=== PATIENT | male | born 1985 | race Caucasian/White ===

== ENCOUNTER 2020-08-19 03:39 | Outpatient (CLI) | payer BC, SELFPAY ==
[2020-08-19 20:40] LABS: SARS-CoV-2 RNA PCR Negative
== END 2020-08-19 03:40 | disposition home or self-care (01) ==
LOC: ANHCOVIDDT 03:40
PROVIDERS: PCP Internal Medicine; Visit Provider Otolaryngology
DX: Z01.812 Encounter for preprocedural laboratory examination (principal); Z11.59 Encounter for screening for other viral diseases
CPT/HCPCS: 87635; C9803; U0003

== ENCOUNTER 2020-08-22 01:22 | Day surgery (SDC) | payer BC, SELFPAY ==
[2020-08-12 14:15] VITALS: BMI 28.5
--- NOTE | 2020-08-21 06:12 | P.HP_ITS ---
History of Present Illness History of Present Illness Consent: Risks, benefits, and alternatives have been discussed and questions answered. Patient agrees to proceed with procedure. Chief complaint: nasal septal deviation Narrative: Clayton Goldman is a 34 year old male he has a deviated septum is unable to breathe out of the side of his nose has been unresponsive to medical management Review of Systems Review of Systems: All systems reviewed & are unremarkable except as noted in HPI and below Allergic/Immunologic: Comments: plan is a septoplasty [facility] Social History Social History Smoking status: Never smoker Alcohol intake: current Drinks per week: 2 Spiritual care concerns: No Meds Home Medications and Allergies Home Medications Medication Instructions Recorded Confirmed Type No Home Medications 07/31/20 08/12/20 History Allergies Allergy/AdvReac Type Severity Reaction Status Date / Time No Known Allergies Allergy Verified 08/12/20 14:15
[2020-08-22] VITALS (9 sets, daily range): BP systolic 115–133; BP diastolic 72–98; PULSE 66–94; RESP 13–16; TEMP 36.1–36.3; O2SAT 95–99
--- NOTE | 2020-08-22 06:20 | WPDHPUPDATE1 ---
History and Physical Update Update Date/Time: 08/22/20 06:20 History and Physical has been reviewed, including an updated exam of the patient. There are NO changes in the patient's condition. Risks, benefits, and alternatives have been discussed and questions answered. Patient agrees to proceed with procedure.
[2020-08-22] MEDS: LACTATED RINGERS 1,000 ML 30 ML IV CONT (07:57)
[2020-08-22] MEDS: ACETAMINOPHEN 500 MG TABLET 1000 MG PO (07:58)
--- NOTE | 2020-08-22 08:19 | P.PNAN_ITS ---
Anes - Initial Pre Proc Eval Procedure: Operation Date: 08/22/20 09:00 Proposed Procedures p Septoplasty - Lewis Vargas MD Date/Time: 08/22/20 08:19 Surgeon: Lewis Vargas MD Pre Op Diagnosis: nasal septal deviation Patient Data Age: 34 Gender: M Height: 6 ft Weight: 95.25 kg Allergies Allergy/AdvReac Type Severity Reaction Status Date / Time No Known Allergies Allergy Verified 08/12/20 14:15 Home Medications Medication Instructions Recorded Confirmed Type No Home Medications 07/31/20 08/12/20 History Patient hx anesthesia problems: none Family hx anesthesia problems: none [facility] Social History Social History Smoking status: Never smoker Alcohol intake: current Drinks per week: 2 Spiritual care concerns: No Anes - Eval Final PreProcedure Day of Procedure 08/22/20 08:19 Patient weight: overweight Heart: regular rate and rhythm Lungs: clear to auscultation Airway: Mallampati scale class II Neurological: alert and oriented Last oral intake: >/= 8 hours ASA classification: II Emergent: no Anesthetic plan: proceed Anesthesia type and monitoring: general ETT and standard monitoring Informed Consent: The patient's anesthetic plan and its attendant risks and benefits were discussed with the patient/family/POA. Questions were solicited and answers provided to the satisfaction of the patient/family/POA.
[2020-08-22] MEDS: COCAINE HCL (*CRX) 4% TOP SOLN 4 ML VIAL 1 APPLIC TOPICAL (08:40)
[2020-08-22] MEDS: LIDO 1%/EPINEPHRINE 1:100,000 20 ML VIAL INFILTRATE (08:40)
--- NOTE | 2020-08-22 09:20 | PM.PROC ---
Procedure Note - Detailed Date of procedure: 08/22/20 Pre-op diagnosis: nasal septal deviation Post-op diagnosis: same Procedure performed: Septoplasty Description of procedure: Patient was prepped and draped in usual fashion after general anesthesia. The nose was injected with xylocaine with Adrenalin and packed with Neosporin Baudilio-Synephrine on cottonoids. A [] pk transfixation was made anterior and posterior tunnel was elevated. The bony cartilage junction . The bony deviation was removed in its entirety. Swung the cardilege and bone to the midline nose open on both sides. The nose was then packed with Surgicel patient awakened returned to recovery good condition. Anesthesia: GLMA and GETA Surgeon: Lewis Vargas MD Estimated blood loss (mL): 10 Drains: No Packing: Yes Pathology: none sent Complications: No immediate complications Condition: stable Disposition: same day Findings: deviated septum
[2020-08-22] MEDS: oxyCODONE HCL (*CRX) 5 MG TAB IR PO (10:41)
== END 2020-08-22 11:00 | disposition home or self-care (01) ==
PROVIDERS: PCP Internal Medicine; Visit Provider Otolaryngology
PROC: (CPT 30520; principal; 2020-08-22 09:00)
DX: J34.2 Deviated nasal septum (principal)
CPT/HCPCS: 30520; A9270; J0330; J1100; J2250; J2405; J2704; J3010; J7120